=== PATIENT | male | born 1940 | race Caucasian/White ===

== ENCOUNTER → 2019-03-25 | Outpatient (CLI) | payer MEDICARE | END | disposition home or self-care (01) | LOC: SHCH 11:01 | PROVIDERS: ATTEND Internal Medicine Cardiovascular Disease | DX: I10 Essential (primary) hypertension (principal) | CPT/HCPCS: 93306 ==

== ENCOUNTER → 2019-03-28 | Outpatient (CLI) | payer MEDICARE ==
[~2019-03-28] VITALS: Ht 175.3 cm; Wt 106.1 kg
[~2019-03-28] MED LIST: REGADENOSON 0.4 MG/5 ML PF SYG IVP SCH
== END | disposition home or self-care (01) ==
LOC: SHCH 08:09 → EDUNIT# 08:30
PROVIDERS: ATTEND Internal Medicine Cardiovascular Disease
DX: R06.00 Dyspnea, unspecified (principal); G47.33 Obstructive sleep apnea (adult) (pediatric); I10 Essential (primary) hypertension; E11.9 Type 2 diabetes mellitus without complications; I25.10 Atherosclerotic heart disease of native coronary artery without angina pectoris
CPT/HCPCS: 78452; 93017; A9500 ×2; J2785; 96374

== ENCOUNTER 2023-02-24 07:33 | Day surgery (SDC) | payer OTHER ==
[~2023-02-24] VITALS: Ht 175.3 cm; Wt 85.7 kg
[2023-02-24] VITALS (11 sets, daily range): BP systolic 131–154; BP diastolic 55–82; PULSE 45–49; RESP 13–17
[~2023-02-24 07:33] MED LIST changes: +APRE30TA5 PO; +ATOR-2 PO; +CARV12.511 PO; +CHLO50TA PO; +LEVO112C4 PO; +LOSA25TA41 PO; +METF-444 PO; +OMEP20CA12 PO; -REGADENOSON 0.4 MG/5 ML PF SYG IVP SCH; +TAMS-1 PO
[2023-02-24] MEDS ORDERED: PROPOFOL 10 MG/ML 20ML VIAL IV ONE (09:45)
[2023-02-24] MEDS ORDERED: LEVOFLOXACIN 500 MG/D5W 100 ML 100 ML ONE (10:15)
== END 2023-02-24 11:42 | disposition home or self-care (01) ==
LOC: DAH 07:33 → ENDO 07:33
PROVIDERS: ATTEND Internal Medicine Gastroenterology
DX: R93.2 Abnormal findings on diagnostic imaging of liver and biliary tract (principal); K86.2 Cyst of pancreas; K22.2 Esophageal obstruction; K21.9 Gastro-esophageal reflux disease without esophagitis; R97.0 Elevated carcinoembryonic antigen [CEA]; I10 Essential (primary) hypertension; E11.9 Type 2 diabetes mellitus without complications; E78.5 Hyperlipidemia, unspecified; M19.90 Unspecified osteoarthritis, unspecified site; Z79.899 Other long term (current) drug therapy; Z79.01 Long term (current) use of anticoagulants; Z79.84 Long term (current) use of oral hypoglycemic drugs; Z87.891 Personal history of nicotine dependence; Z72.89 Other problems related to lifestyle
CPT/HCPCS: 43238; 82150; 82948; 88305; 88112; 82378; J1956; J2704; A4620; A4215 ×3; A4223; A7002; A4222; A4221; A4663; A4216; J7030; A4606; 36415; J3490